=== PATIENT | female | born 1995 | race Caucasian/White ===

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

== ENCOUNTER 2019-04-15 20:57 | Emergency (ER) | payer OTHER ==
[2019-04-15 21:18] VITALS: BP 113/77; PULSE 99; TEMP 98; BMI 27.2
[2019-04-15] MEDS ORDERED: SODIUM CHLORIDE 0.9% 500 ML INFUS.BAG IV ONE (21:31)
[2019-04-15] MEDS ORDERED: FAMOTIDINE 20 MG/50 ML IVPB 20 MG/50 ML MG IVPB ONE ×2 (21:31→22:07)
[2019-04-15] MEDS ORDERED: DEXAMETHASONE SOD PHOSPHATE 10 MG/1 ML VIAL IVPUSH ONE (21:31)
--- NOTE | 2019-04-15 21:32 | PDOC ---
Rapid Medical Evaluation Chief Complaint: Allergic Reaction Medical Evaluation: Allergies Allergy/AdvReac Type Severity Reaction Status Date / Time nut - unspecified Allergy Verified 04/15/19 21:14 Vital Signs Temp Pulse Resp BP Pulse Ox 98 F 99 H 20 113/77 100 04/15/19 21:14 04/15/19 21:14 04/15/19 21:14 04/15/19 21:14 04/15/19 21:14 04/15/19 21:30 I have performed a brief in-person evaluation of this patient. The patient presents with a chief complaint of: allergic reaction s/p eating nuts, pt has taken benadryl with improvement of symptoms Pertinent physical exam findings: well appearing, no obvious facial swelling I have ordered the following: IVF, decadron, pepcid The patient will proceed to the ED for further evaluation. Discharge Disposition - Diagnosis Allergic reaction - Referrals - Patient Instructions - Post Discharge Activity
--- NOTE | 2019-04-15 21:53 | PDOC ---
History of Present Illness - General Chief Complaint: Allergic Reaction Stated Complaint: ALLAERGY REACTION Time Seen by Provider: 04/15/19 21:38 - History of Present Illness Initial Comments: 04/15/19 21:52 24-year-old female without comorbidities presents for evaluation of an allergic reaction. Patient is allergic to peanuts she accidentally ingested [place] food containing peanuts. She is feeling better after some Benadryl. Past History - Past Medical History Allergies/Adverse Reactions: Allergies Allergy/AdvReac Type Severity Reaction Status Date / Time nut - unspecified Allergy Verified 04/15/19 21:14 Home Medications: Ambulatory Orders Methylprednisolone [Medrol Dose Damion] 4 mg PO ASDIR #21 tablet 10/04/16 Asthma: Yes - Immunization History Immunization Up to Date: Yes - Psycho Social/Smoking Cessation Hx Smoking History: Never smoked Hx Alcohol Use: No Drug/Substance Use Hx: No Substance Use Type: None Review of Systems - Review of Systems Respiratory: No: Cough, Shortness of Breath, Wheezing Integumentary: No: Pruritus, Rash *Physical Exam - Vital Signs Last Vital Signs Temp Pulse Resp BP Pulse Ox 98 F 99 H 20 113/77 100 04/15/19 21:14 04/15/19 21:14 04/15/19 21:14 04/15/19 21:14 04/15/19 21:14 - Physical Exam 04/15/19 21:52 GENERAL: The patient is awake, alert, and fully oriented, in no acute distress. HEAD: Normal with no signs of trauma. EYES: sclera anicteric, conjunctiva clear. ENT: Ears normal tympanic membranes normal oropharynx clear uvula midline NECK: Normal range of motion LUNGS: Breath sounds equal, clear to auscultation bilaterally. No wheezes, and no crackles. HEART: S1 and S2 without murmur, rub or gallop. ABDOMEN: Soft, nontender, normoactive bowel sounds. No guarding, no rebound. No masses. EXTREMITIES: Normal range of motion, no edema. No clubbing or cyanosis. No cords, erythema, or tenderness. NEUROLOGICAL: Cranial nerves II through XII grossly intact. PSYCH: Normal mood, normal affect. SKIN: Warm, Dry, normal turgor, no rashes or lesions noted. Medical Decision Making - Medical Decision Making 04/15/19 21:52 Patient asymptomatic after Benadryl. We will continue with IV steroids and Pepcid and reevaluate Discharge - Discharge Information Problems reviewed: Yes Clinical Impression/Diagnosis: Allergic reaction Condition: Stable Disposition: HOME - Admission No - Follow up/Referral Referrals: Neli Butler [Primary Care Provider] - - Patient Discharge Instructions Additional Instructions: Continue Benadryl for itching. You were treated in the emergency room with a long-acting steroid. You should not require further treatment. Return to the emergency room for worsening symptoms and without fail follow-up with your primary care physician in 1 to 2 days for further evaluation and treatment options. - Post Discharge Activity Work/Back to School Note: Back to School
[2019-04-15] MEDS ORDERED: DEXAMETHASONE SOD PHOSPHATE 10 MG/1 ML VIAL ONE (22:07)
== END 2019-04-15 22:45 | disposition home or self-care (01) ==
LOC: JERFT 20:57
PROC: 3E033GC Introduction of Other Therapeutic Substance into Peripheral Vein, Percutaneous Approach (ICD-10-PCS; principal; 2019-04-15)
DX: T78.1XXA Other adverse food reactions, not elsewhere classified, initial encounter (principal); X58.XXXA Exposure to other specified factors, initial encounter; Z91.018 Allergy to other foods
CPT/HCPCS: 99284-25; J1100